=== PATIENT | female | born 1960 | race Caucasian/White ===

== ENCOUNTER → 2020-01-20 | Day surgery (SDC) | payer OTHER ==
--- NOTE | 2020-01-20 22:43 | OP ---
DATE OF OPERATION: 01/20/2020 PREOPERATIVE DIAGNOSIS: Abnormal right mammography. POSTOPERATIVE DIAGNOSIS: Abnormal right mammography. PROCEDURE: Right stereotactic needle biopsy with clips. SURGEON: Halina Mchugh MD. ANESTHESIA: Local. COMPLICATIONS: None. This was a sterile procedure. INDICATION FOR PROCEDURE: Patient had routine screening mammography that noted calcifications in the outer right breast and 2 densities in the inner right breast. One of them appeared benign, the other had a little spiculated area. An ultrasound shows a suggestion of complex cysts in the inner right breast, but not sure if correlated to the mammogram findings. 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 The procedure of right breast stereotactic needle biopsy with clip was discussed and all her questions answered. PROCEDURE IN DETAIL: Patient brought to [facility] in [place], laid prone on the OR table. Using the medial approach, the density in the inner right breast was identified. A sterile prep was obtained. A target was chosen. There was a positive stroke margin. Using Betadine and 1% lidocaine, a 9-gauge Suros device was used to take several cores from this density. Cores were sent to pathology in formalin. A clip was deployed. Hemostasis assured with direct pressure. Steri-Strips were used to close the incision. A postprocedure mammogram showed the clip to be more anterior than where the density would have been; however, no density was not as well visualized as well either, on the mammogram. So it could be either the clip migrated, or there is no density to be seen on the postprocedure mammogram, so it is possible the density has been biopsied. We will await the results of this and decide further management. HALINA MCHUGH M.D. [id number]
--- NOTE | 2020-01-21 15:39 | PATH ---
Surgical Pathology Report Patient Name: MARCELO SHARMA [facility]. Rec. #: [id number] /Age/Gender: 1960 (Age: 59) / F Account: [id number] Location: [facility] Taken: 01/20/2020 Received: 01/20/2020 Reported: 01/21/2020 Physicians: Halina Hood M.D. Specimen(s) Received RIGHT BREAST SPECIMEN WITH DENSITY STEREOTACTIC BIOPSY Clinical History Nonpalpable lesion Mammographic findings: Suspicious Final Diagnosis BREAST, RIGHT, DENSITY, STEREOTACTIC BIOPSY: BENIGN BREAST TISSUE SHOWING FIBROCYSTIC CHANGES INCLUDING CYSTIC APOCRINE METAPLASIA AND STROMAL FIBROSIS. Electronically Signed Ofelia Mak M.D. Gross Description Received in formalin labeled "right breast specimen with density," is a 2.6 x 2.0 x 0.3 cm aggregate of multiple savage-yellow, irregular to cylindrical portions of fibroadipose tissue. The formalin is filtered and the specimen is entirely submitted in one cassette. Time to formalin fixation: 1 minute Total formalin fixation time: Approximately 7 hours. /01/20/2020 [facility]/01/20/2020
== END | disposition home or self-care (01) ==
LOC: FMAMMOTONE 09:38
PROVIDERS: ATTEND Surgery
PROC: 0HBT3ZX Excision of Right Breast, Percutaneous Approach, Diagnostic (ICD-10-PCS; principal; 2020-01-20)
DX: N60.11 Diffuse cystic mastopathy of right breast (principal); N60.31 Fibrosclerosis of right breast; R92.8 Other abnormal and inconclusive findings on diagnostic imaging of breast
CPT/HCPCS: 19081; 88305-TC; A4648